=== PATIENT | male | born 1980 | race Caucasian/White ===

== ENCOUNTER → 2018-10-30 | Outpatient (CLI) | payer OTHER ==
[~2018-10-30] MED LIST: ALBU90AE INH; AMOX-559 PO; CETI10CA8 PO; FEXO1TAB63 PO; FLUT9.9S; METH4TAB66 PO; MONT10TA PO; MOXOD OU; VALA500T66 PO
== END ==
LOC: LAB 15:45
PROVIDERS: ATTEND Otolaryngology
DX: J30.9 Allergic rhinitis, unspecified (principal)
CPT/HCPCS: 36415; 86003